=== PATIENT | female | born 1970 | race Hispanic/Latino ===

== ENCOUNTER 2022-07-27 15:00 | Emergency (ER) | payer BC ==
[~2022-07-27] VITALS: Ht 157.5 cm; Wt 112.5 kg
[2022-07-27 15:10] VITALS: BP 174/95
[2022-07-27] MEDS ORDERED: ORPHENADRINE CITRATE 30 MG/ML ML IM ONE (15:30)
[2022-07-27] MEDS ORDERED: KETOROLAC 60 MG VIAL (30MG/ML) IM ONE (15:30)
[2022-07-27] MEDS ORDERED: CYCL10TA16 PO (15:44)
[2022-07-27] MEDS ORDERED: IBUP-2077 PO (15:44)
[2022-07-27] MEDS ORDERED: OXYC-38 PO (15:44)
== END 2022-07-27 16:10 | disposition home or self-care (01) ==
LOC: EDH 15:00
DX: M54.42 Lumbago with sciatica, left side (principal); E11.9 Type 2 diabetes mellitus without complications; I10 Essential (primary) hypertension; Z79.1 Long term (current) use of non-steroidal anti-inflammatories (NSAID); Z79.899 Other long term (current) drug therapy
CPT/HCPCS: 99284; 96372 ×2; J1885; J2360